=== PATIENT | male | born 2000 | race Caucasian/White ===

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

== ENCOUNTER 2018-02-10 18:33 | Emergency (ER) | payer OTHER ==
[2018-02-10 18:39] VITALS: BP 140/76
--- NOTE | 2018-02-10 18:49 | EDPHY ---
H & P Stated Complaint: ST X 5 DAYS Time Seen by Provider: 02/10/18 18:45 HPI/ROS: HPI: The 17-year-old male presents with Chief Complaint: Sore throat times x5 days Location: Throat Quality: Sore Duration: 5 days Signs and Symptoms: no fever, no nausea, no vomiting, no diarrhea, no urinary symptoms, no chest pain, no shortness of breath, no wheezing, no cough, no neck stiffness, no joint pain, + swollen glands, no ear pain, no rash Timing: Acute Severity: [id number] Context: Patient presents with 5 day history of sore throat accompanied by swollen glands. Denies fever, cough, neck stiffness. He reports that he also broke out with acne on his face and chest which is unusual for him 3 days ago. Denies any recent strep exposure. He reports that his difficulty eat certain foods but he is able to drink fluids. Denies any runny nose, postnasal drip. watery eyes. Modifying Factors: Has tried no [id number] medications Comment: ROS: see HPI Constitutional: no fever, no chills, no weight loss Eyes: No blurred vision Respiratory: No shortness of breath, no cough Cardiovascular: No chest pain, no palpitations Gastrointestinal: No nausea, no vomiting, no diarrhea, no hematemesis, no blood in stool Genitourinary: No dysuria, no blood in urine Extremities: No myalgias, no edema Neurologic: No weakness, no numbness Skin: No rashes, no petechiae Hematologic: No bruising, no bleeding MEDICAL/SURGICAL/SOCIAL HISTORY: Medical history:HYDROCELE 2002, DIABETES TYPE 2 Surgical history: Denies Social history: Student. Family history noncontributory. CONSTITUTIONAL: Well-appearing teenage white male, awake and alert, no obvious distress HEENT: Atraumatic and normocephalic, PERRL, EOMI. Nares patent; no rhinorrhea; no nasal mucosal edema. Tympanic membranes clear. Oropharynx clear, tonsils mildly erythematous 1+ no exudate and moist pink mucosa. Airway patent. + mild spotty cervical lymphadenopathy. No meningismus. Cardiovascular: Normal S1/S2, regular rate, regular rhythm, without murmur rub or gallop. PULMONARY/CHEST: Symmetrical and nontender. Clear to auscultation bilaterally. Good air movement. No accessory muscle usage. ABDOMEN: Soft, nondistended, nontender, no rebound, no guarding, no peritoneal signs, no masses or organomegaly. No CVAT. EXTREMITIES: 2/2 pulses, strength 5/5, no deformities, no clubbing, no cyanosis or edema. NEUROLOGICAL: no focal neuro deficits. GCS 15. SKIN: Warm and dry, comedones and pustules noted on face and torso consistent with acne. no rash. Good capillary refill. Source: Patient Exam Limitations: No limitations - Personal History Current Tetanus Diphtheria and Acellular Pertussis (TDAP): Yes - Medical/Surgical History Hx Asthma: No Hx Chronic Respiratory Disease: No Hx Diabetes: Yes Hx Cardiac Disease: No Hx Renal Disease: No Hx Cirrhosis: No Hx Alcoholism: No Hx HIV/AIDS: No Hx Splenectomy or Spleen Trauma: No Other PMH: HYDROCELE 2001, DIABETES TYPE 2 - Social History Smoking Status: Never smoked Constitutional: Initial Vital Signs Temperature (C) 36.6 C 02/10/18 18:38 Heart Rate 84 02/10/18 18:38 Respiratory Rate 16 02/10/18 18:38 Blood Pressure 140/76 H 02/10/18 18:38 O2 Sat (%) 97 02/10/18 18:38 O2 Delivery Mode Room Air Allergies/Adverse Reactions: No Known Allergies Allergy (Verified 02/10/18 18:37) Home Medications: Medication Instructions Recorded Doxycycline Hyclate 100 mg PO BID #28 tab 02/10/18 Medical Decision Making ED Course/Re-evaluation: Rapid strep test was negative. Sent for throat culture. Modified center score is 2 and prophylactic antibiotics are not indicated. Given Decadron 8 mg No signs of tonsillar abscess/airway compromise/respiratory distress/meningitis Will give patient doxycycline for his acne. Advised supportive care This patient was seen under the supervision of my secondary supervising physician. I evaluated care for this patient independently. Discussed this patient with Dr. Samuels. Differential Diagnosis: Differential diagnosis includes but is not limited to upper respiratory infection, viral pharyngitis, postnasal drip, allergic rhinitis, strep pharyngitis. - Data Points Laboratory Results: 02/10/18 02/10/18 Unknown 18:40 Group A Strep Screen NEGATIVE (NEGATIVE) Group A Strep DNA Pending Medications Given: Discontinued Medications Dexamethasone (Decadron) 8 mg PO EDNOW ONE Stop: 02/10/18 18:52 Last Admin: 02/10/18 18:58 Dose: 8 mg Departure - Departure Disposition: Home, Routine, Self-Care Clinical Impression: Viral pharyngitis Acne Qualifiers: Acne type: acne vulgaris Qualified Code(s): L70.0 - Acne vulgaris Condition: Good Instructions: Antiacne Antibacterial (On the skin) Additional Instructions: Strep test was negative. Consume a minimum of 8-10 glasses of water or electrolyte fluid replacement drinks that include Gatorade, Powerade, Pedialyte. Eat a bland diet for the next 48 hours and then slowly advance as tolerated. Use [id number] Tylenol and/or Ibuprofen as needed for pain, fever. The doxycycline twice a day for the next 2 weeks for your acne. Return to the ER immediately if you cannot swallow, have drooling, fevers, neck stiffness, cannot open your jaw, or any other symptoms that concern you. Referrals: PCP Not In,Dictionary [Medical Doctor] - 3-4 days, if not improved Prescriptions: Doxycycline Hyclate 100 mg PO BID #28 tab
[2018-02-10] MEDS ORDERED: DEXAMETHASONE 4 MG TAB PO ONE (18:51)
== END 2018-02-10 19:22 | disposition home or self-care (01) ==
DX: J02.8 Acute pharyngitis due to other specified organisms (principal); B97.89 Other viral agents as the cause of diseases classified elsewhere; L70.0 Acne vulgaris; E11.9 Type 2 diabetes mellitus without complications